=== PATIENT | female | born 1980 | race Caucasian/White ===

== ENCOUNTER 2018-05-20 07:12 | Emergency (ER) | payer OTHER ==
[~2018-05-20] VITALS: Ht 160 cm; Wt 96.4 kg
[2018-05-20 07:26] VITALS: Ht 160 cm; Wt 96.4 kg
[2018-05-20] MEDS ORDERED: ADIPEX-P37.5 MG PO (07:27)
[2018-05-20] MEDS ORDERED: BUPROPION HCL100 M1 PO (07:28)
[2018-05-20] MEDS ORDERED: TOPAMAX15 MG PO (07:28)
[2018-05-20 07:50] LABS: BASOPHILS 0.3 % (0-2); EOSINOPHILS 1.3 % (0-7); HEMATOCRIT 43.9 % (36.0-48.0); HEMOGLOBIN 14.7 g/dL (12-16); IMMATURE GRANULOCYTES 0.1 % (0-5); LYMPHOCYTES 26.4 % (15-50); MCH 28.7 pg (26.0-34.0); MCHC 33.5 g/dL (31.0-37.0); MCV 85.7 fL (80.0-100.0); MEAN PLATELET VOLUME 9.5 fL (7.4-10.4); MONOCYTES 6.2 % (2-11); NEUTROPHILS 65.7 % (40-80); RBC 5.12 10x6/uL (4.00-5.40); RDW 13.1 % (11.5-14.5); WBC 7.5 10x3/uL (4.8-10.8)
[2018-05-20 07:57] LABS: PLATELET COUNT 288 10x3/uL (130-400)
[2018-05-20 08:00] LABS: HCG URINE NEGATIVE (NEGATIVE)
[2018-05-20 08:07] LABS: ALBUMIN 3.8 g/dL (3.4-5.0); ALKALINE PHOSPHATASE 79 U/L (46-116); ALT (SGPT) 20 U/L (10-68); BILIRUBIN - TOTAL 0.42 mg/dL (0.2-1.3); CALC OSMOLALITY 278 mosm/kg (275-300); CALCIUM 8.7 mg/dL (8.5-10.1); CARBON DIOXIDE 24.3 mmol/L (21.0-32.0); CHLORIDE - SERUM 105 mmol/L (98-107); CREATININE - SERUM 0.8 mg/dL (0.6-1.3); GLUCOSE 110 mg/dL (74-106); POTASSIUM - SERUM 4.4 mmol/L (3.5-5.1); SODIUM 140 mmol/L (136-145); UREA NITROGEN 10 mg/dL (7-18); eGFR NON AFRICAN AMERICAN 85 mL/min (90-120)
[2018-05-20 08:09] LABS: APPEARANCE CLOUDY (CLEAR); BACTERIA MANY /hpf (NONE SEEN); BILIRUBIN NEGATIVE (NEGATIVE); COLOR YELLOW (YELLOW); GLUCOSE NEGATIVE (NEGATIVE); KETONE NEGATIVE (NEGATIVE); MUCUS <1+ /lpf (NONE SEEN); NITRITE POSITIVE (NEGATIVE); PROTEIN NEGATIVE (NEGATIVE); RED CELLS - URINE 0-5 /hpf (0-5); SPECIFIC GRAVITY 1.015 (1.005-1.020); UROBILINOGEN NORMAL (NORMAL)
[2018-05-20 08:10] LABS: AMYLASE - SERUM 39 U/L (25-115); LIPASE 99 U/L (73-393); TROPONIN-I < 0.017 ng/mL (0.000-0.060)
[2018-05-20] MEDS ORDERED: KEFLEX500 MG PO (08:38)
[2018-05-20] MEDS ORDERED: MACROBID100 MG PO (08:38)
[2018-05-20] MEDS ORDERED: MIRALAX17 GM PO (08:38)
[2018-05-20 09:48] VITALS: BP 134/89
== END 2018-05-20 09:49 | disposition home or self-care (01) ==
LOC: D.ER 07:12
PROVIDERS: Family Medicine
DX: R10.9 Unspecified abdominal pain (principal); K59.00 Constipation, unspecified; R30.0 Dysuria; N39.0 Urinary tract infection, site not specified; R11.0 Nausea